=== PATIENT | female | born 1970 | race Caucasian/White ===

== ENCOUNTER 2022-01-05 06:47 | Day surgery (SDC) | payer MEDICAID ==
[~2022-01-05] VITALS: Ht 154.9 cm; Wt 74.4 kg
[2022-01-05] MEDS ORDERED: MEPERIDINE 100 MG INJ. 100 MG/ML VIAL ONE (07:11)
[2022-01-05] MEDS: MIDAZOLAM HCL 5 MG/5 ML VIAL ONE ×4 (08:57→09:08)
[2022-01-05] MEDS: fentaNYL CITRATE/PF 100 MCG/2 ML AMP ONE ×3 (08:57→09:02)
[2022-01-05] MEDS ORDERED: fentaNYL CITRATE/PF 100 MCG/2 ML AMP ONE (09:11)
[2022-01-05 14:16] VITALS: BP_SYST 110
== END 2022-01-05 10:25 | disposition home or self-care (01) ==
LOC: SMU 06:47 → SDS 06:47
PROVIDERS: ATTEND Internal Medicine
DX: Z01.818 Encounter for other preprocedural examination (principal); R10.13 Epigastric pain; K29.50 Unspecified chronic gastritis without bleeding; K57.30 Diverticulosis of large intestine without perforation or abscess without bleeding; K64.8 Other hemorrhoids; K29.80 Duodenitis without bleeding; Z88.5 Allergy status to narcotic agent; K31.7 Polyp of stomach and duodenum; Z20.822 Contact with and (suspected) exposure to COVID-19; Z79.899 Other long term (current) drug therapy
CPT/HCPCS: 36415; 43239; 45378; 87081; 88305; 88312; 88313; J2175; J2250; J3010; U0003